=== PATIENT | female | born 1955 | race Caucasian/White ===

== ENCOUNTER 2018-01-10 13:03 | Day surgery (SDC) | payer MEDICAID ==
[~2018-01-10] VITALS: Ht 152.4 cm; Wt 60.9 kg
[2018-01-10] VITALS (7 sets, daily range): BP systolic 115–135; BP diastolic 64–91
[2018-01-10] MEDS ORDERED: fentaNYL/PF 50MCG/1 ML 2ML syringe ONE (13:15)
[2018-01-10] MEDS ORDERED: LIDOcaine Viscous 15ml cup ONE (13:15)
[2018-01-10] MEDS ORDERED: glucagon, human recombinant 1mg kit ONE ×2 (13:15)
[2018-01-10] MEDS ORDERED: MIDAZolam 5mg/5ml vial ONE (13:15)
[2018-01-10] MEDS ORDERED: iohexol 300 MG/1 ML 50ml polymer ONE (13:15)
[2018-01-10] MEDS ORDERED: PANT-47 PO (13:19)
[2018-01-10] MEDS ORDERED: MIRT15TA PO (13:20)
[2018-01-10] MEDS ORDERED: DULO20CA17 PO (13:21)
[2018-01-10] MEDS ORDERED: SUCR1TAB PO (13:24)
[2018-01-10] MEDS ORDERED: IBUP-24 PO (13:24)
== END 2018-01-10 16:13 | disposition home or self-care (01) ==
LOC: GI LAB 13:03
PROVIDERS: ATTEND Internal Medicine Gastroenterology
DX: Z46.59 Encounter for fitting and adjustment of other gastrointestinal appliance and device (principal); K80.50 Calculus of bile duct without cholangitis or cholecystitis without obstruction; R93.2 Abnormal findings on diagnostic imaging of liver and biliary tract; F17.210 Nicotine dependence, cigarettes, uncomplicated; Z90.49 Acquired absence of other specified parts of digestive tract; Z79.1 Long term (current) use of non-steroidal anti-inflammatories (NSAID); Z88.0 Allergy status to penicillin; Z79.899 Other long term (current) drug therapy; Z98.890 Other specified postprocedural states
CPT/HCPCS: 43264; 43276; 74328; 99152; 99153; J1610; J2250; J3010; J7030; Q9967; A4620; G0500

== ENCOUNTER 2018-02-14 15:16 | Day surgery (SDC) | payer MEDICAID ==
[2018-02-14] VITALS (8 sets, daily range): BP systolic 104–136; BP diastolic 66–80
[~2018-02-14] VITALS: Ht 152.4 cm; Wt 39.5 kg
[~2018-02-14 15:16] MED LIST: DULO20CA17 PO; IBUP-24 PO; MIRT15TA PO; PANT-47 PO; SUCR1TAB PO
[2018-02-14] MEDS ORDERED: PANT-47 PO (15:42)
[2018-02-14] MEDS ORDERED: SUCR1TAB PO (15:44)
[2018-02-14] MEDS ORDERED: LIDOcaine Viscous 15ml cup ONE (17:00)
[2018-02-14] MEDS ORDERED: glucagon, human recombinant 1mg kit ONE (17:02)
[2018-02-14] MEDS ORDERED: MIDAZolam 5mg/5ml vial ONE (17:02)
[2018-02-14] MEDS ORDERED: fentaNYL/PF 50MCG/1 ML 2ML syringe ONE (17:02)
[2018-02-14] MEDS ORDERED: iohexol 300 MG/1 ML 50ml polymer ONE (17:02)
== END 2018-02-14 18:45 | disposition home or self-care (01) ==
LOC: GI LAB 15:16
PROVIDERS: ATTEND Internal Medicine Gastroenterology
DX: Z46.59 Encounter for fitting and adjustment of other gastrointestinal appliance and device (principal); F17.210 Nicotine dependence, cigarettes, uncomplicated; Z90.49 Acquired absence of other specified parts of digestive tract; Z79.1 Long term (current) use of non-steroidal anti-inflammatories (NSAID); Z88.0 Allergy status to penicillin; Z79.899 Other long term (current) drug therapy; Z98.890 Other specified postprocedural states
CPT/HCPCS: 43264; 43275; 99152; J2250; J3010; J7030; Q9967; 43276; A4620; G0500; J1610